=== PATIENT | male | born 1990 | race Hispanic/Latino ===

== ENCOUNTER 2021-04-09 08:18 | Outpatient (CLI) | payer MEDICARE, MEDICAID | END 2021-04-09 08:19 | disposition home or self-care (01) | LOC: CSHWCC 08:18 | PROVIDERS: ATTEND Nurse Practitioner Family | DX: T81.89XD Other complications of procedures, not elsewhere classified, subsequent encounter (principal); Z93.2 Ileostomy status | CPT/HCPCS: 97139; 97605; G0463; 99203 ==

== ENCOUNTER 2021-04-16 11:21 | Outpatient (CLI) | payer MEDICARE, MEDICAID | END 2021-04-16 11:22 | disposition home or self-care (01) | LOC: CSHWCC 11:21 | PROVIDERS: ATTEND Nurse Practitioner Family | DX: T81.89XD Other complications of procedures, not elsewhere classified, subsequent encounter (principal); R93.2 Abnormal findings on diagnostic imaging of liver and biliary tract | CPT/HCPCS: 97605 ==